=== PATIENT | female | born 1950 | race Caucasian/White ===

== ENCOUNTER 2020-04-20 12:12 | Emergency (ER) | payer MEDICARE, OTHER ==
[~2020-04-20] VITALS: Ht 157.5 cm; Wt 64.6 kg
[2020-04-20 12:24] VITALS: BP 150/80
== END 2020-04-20 14:18 | disposition home or self-care (01) ==
LOC: ED 14:12
DX: L03.012 Cellulitis of left finger (principal)
CPT/HCPCS: 29130; 99283